=== PATIENT | female | born 1995 | race American Indian/Alaskan Native ===

== ENCOUNTER 2016-11-05 13:15 | Inpatient (IN) | payer OTHER ==
[2016-11-05] MEDS ORDERED: LACTATED RINGERS 2,000 ML ONE (14:31)
--- NOTE | 2016-11-05 15:11 | History and Physical Report ---
History of Present Illness Date of examination: 11/05/16 Chief complaint: Painful contractions x 24 hrs History of present illness: 21-year-old at 38+5 wks presents in active labor, she is a [facility] patient. Essential history is patient with care in [place] and recently moved to [place] in September of this year. Per review of her records from [place], she had elevated 1 hour GTT but normal 3 hour testing. I have her records from [place], but none from [facility]. Her records from [place] show lab results but none for HIV, hepatitis or syphilis. There is a a written report of negative study but no lab report. She claims to be GBS pos but I have no written report from [place]. He is currently 4-5 cm per RN exam with regular contractions. Past History Past Medical History: no pertinent history Past Surgical History: no surgical history [employer]IAN History: chlamydia. denies: gonorrhea, hepatitis B, hepatitis C, herpes, HIV, syphilis, trichomonas Social history: single, full code. denies: smoking, alcohol abuse, prescription drug abuse, IV drug use - Obstetrical History Expected Date of Delivery: 11/13/16 Actual Gestation: 38 Week(s) 6 Day(s) : 2 Para: 1 Medications and Allergies Allergies Allergy/AdvReac Type Severity Reaction Status Date / Time No Known Allergies Allergy Verified 11/05/16 14:38 Review of Systems Constitutional: no fever, no chills, no sweats Cardiovascular: no chest pain, no orthopnea, no syncope, no lightheadedness, no shortness of breath, no dyspnea on exertion, no paroxysmal nocturnal dyspnea, no high blood pressure Respiratory: no hemoptysis, no shortness of breath, no dyspnea on exertion Gastrointestinal: abdominal pain (painful regular contractions), no nausea, no vomiting, no diarrhea, no dyspepsia/bloating Genitourinary: no vaginal bleeding, no vaginal discharge, no leakage of fluid - Physical Exam Abdomen: Positive: normal appearance, soft. Negative: distention, tenderness, guarding, rigidity Genitourinary (Female): Positive: normal external genitalia Uterus: Positive: enlarged (EFW ~ 3400). Negative: tender Extremities: Positive: normal - Obstetrical FHR: category 1 Cervical Dilatation: 4.5 (Per RN exam) Results All other labs normal. Assessment and Plan A: 21-year-old at 38+5 weeks in active labor -Cat 1 tracing P: -Admit -Obtain routine labs -Will need labs as well (no lab results in chart) -UDS -Epidural when necessary -Expectant management -Anticipate normal vaginal delivery - Patient Problems (1) 38 weeks gestation of Current Visit: Yes Status: Acute (2) Active labor at term Current Visit: Yes Status: Acute (3) with care elsewhere in third trimester Current Visit: Yes Status: Acute
[2016-11-05] MEDS ORDERED: XYLOCAINE 2% INFILTRATI ONE (15:16)
[2016-11-05] MEDS ORDERED: BRETHINE SUB-Q PRN (15:16)
[2016-11-05] MEDS ORDERED: ePHEDrine SULFATE IV PRN (15:16)
[2016-11-05] MEDS ORDERED: BRETHINE IVP PRN (15:16)
[2016-11-05] MEDS ORDERED: POLYCILLIN/NS 2 GM/100 ML 2 GM/100 ML BAG IV ONE (15:16)
[2016-11-05] MEDS ORDERED: ZOFRAN IV PRN (15:16)
[2016-11-05] MEDS ORDERED: MINERAL OIL PO PRN (15:16)
[2016-11-05] MEDS ORDERED: PITOCin/NS 20 UNIT/1000ML DRIP 20 UNITS/1,000 ML BAG IV SCH (16:00)
[2016-11-05] MEDS ORDERED: LACTATED RINGERS 1,000 ML IV SCH (16:00)
[2016-11-05] MEDS ORDERED: PITOCin/NS 30 UNIT/500ML 30 UNITS/500 ML BAG IV SCH ×2 (16:00)
[2016-11-05 16:35] LABS: Hematocrit 42.6 % (30.3-42.9); Mean Corpuscular HGB Conc 33 % (30-34); Mean Corpuscular Hemoglobin 28 pg (28-32); Mean Corpuscular Volume 86 fl (79-97); Platelet Count 257 K/mm3 (140-440); Red Blood Count 4.97 M/mm3 (3.65-5.03); Red Cell Distribution Width 13.8 % (13.2-15.2); White Blood Count 19.8 K/mm3 (4.5-11.0)
[2016-11-05 17:05] LABS: HIV-1 Antigen p24 Non React (Non React); HIVR-1/2 Ab Non React (Non React)
[2016-11-05 18:20] LABS: Alanine Aminotransferase 15 units/L (7-56); Lactate Dehydrogenase 251 units/L (91-180)
[2016-11-05] MEDS ORDERED: MAGNESIUM SULFATE 4GM/100ML 4 GM/100 ML BAG IV ONE (18:30)
[2016-11-05] MEDS ORDERED: NORMODYNE IV PRN (18:33)
[2016-11-05] MEDS ORDERED: APRESOLINE IV PRN (18:34)
--- NOTE | 2016-11-05 18:40 | Event Note ---
Date: 11/05/16 Patient seen and examined. She has elevated blood pressures in the severe range 140 to 190s over 80s to 90s, is asymptomatic for pre-at this time. She is currently 7-8 cm and -1 station. Continuing expectant management of labor with no epidural. Plan at this point is to start magnesium per protocol. Start antihypertensives if blood pressure persistently in the severe range. Await results of urinalysis and hepatic panel.
[2016-11-05] MEDS: MAGNESIUM SULFATE 40GM/1000ML 40 GM/1,000 ML BAG IV NR (18:53)
[2016-11-05 19:06] LABS: Alanine Aminotransferase 16 units/L (7-56); Albumin 3.3 g/dL (3.9-5); Albumin/Globulin Ratio 0.8 %; Alkaline Phosphatase 93 units/L (35-129); Anion Gap 20 mmol/L; BUN/Creatinine Ratio 13.33; Blood Urea Nitrogen 8 mg/dL (7-17); Calcium 9.7 mg/dL (8.4-10.2); Carbon Dioxide 21 mmol/L (22-30); Chloride 98.6 mmol/L (98-107); Glucose 71 mg/dL (65-100); Potassium 4.6 mmol/L (3.6-5.0); Sodium 135 mmol/L (137-145); Total Protein 7.2 g/dL (6.3-8.2)
--- NOTE | 2016-11-05 19:13 | Progress Note ---
Assessment and Plan A: 21-year-old at 38+5 weeks in active labor -Cat 1 tracing P: -AROMed w/ meconium fluid -Magnesium started per protocol -Continue expectant management - Patient Problems (1) 38 weeks gestation of Current Visit: Yes Status: Acute (2) Active labor at term Current Visit: Yes Status: Acute (3) with care elsewhere in third trimester Current Visit: Yes Status: Acute Subjective - Subjective Date of service: 11/05/16 Interval history: Patient AROM, with thick pea soup meconium noted. She is 7-8 cm -1 station Patient reports: new complaints, movement normal, contractions, no vaginal bleeding Objective - Vital Signs Vital Signs: Vital Signs - 12hr 11/05/16 11/05/16 11/05/16 15:00 15:39 15:48 Temperature 98.7 F Pulse Rate 59 L 58 L Respiratory 20 Rate Blood Pressure 153/87 197/92 O2 Sat by Pulse Oximetry 11/05/16 11/05/16 11/05/16 16:00 16:03 16:08 Temperature Pulse Rate 59 L 62 59 L Respiratory Rate Blood Pressure 150/79 O2 Sat by Pulse 100 99 Oximetry 11/05/16 11/05/16 11/05/16 16:13 16:18 16:23 Temperature Pulse Rate 59 L 64 68 Respiratory Rate Blood Pressure 171/81 O2 Sat by Pulse 98 97 98 Oximetry 11/05/16 11/05/16 11/05/16 16:28 16:33 16:49 Temperature Pulse Rate 62 61 60 Respiratory Rate Blood Pressure 163/90 O2 Sat by Pulse 98 98 Oximetry 11/05/16 11/05/16 11/05/16 17:18 17:49 18:27 Temperature Pulse Rate 68 56 L 66 Respiratory Rate Blood Pressure 155/89 158/83 145/85 O2 Sat by Pulse Oximetry 11/05/16 11/05/16 18:49 19:01 Temperature Pulse Rate 64 71 Respiratory Rate Blood Pressure 184/99 157/83 O2 Sat by Pulse Oximetry - Exam FHR: category 1 Cervical Dilatation: 7.5 station: -1 - Labs Labs: Abnormal Labs 11/05/16 11/05/16 11/05/16 15:30 17:53 17:53 WBC 19.8 H Sodium 135 L Carbon Dioxide 21 L Creatinine 0.5 L 0.6 L Lactate Dehydrogenase 251 H Albumin 3.3 L Laboratory Results - last 24 hr 11/05/16 11/05/16 11/05/16 15:30 15:30 15:30 WBC 19.8 H RBC 4.97 Hgb 14.0 Hct 42.6 MCV 86 MCH 28 MCHC 33 RDW 13.8 Plt Count 257 Sodium Potassium Chloride Carbon Dioxide Anion Gap BUN Creatinine Estimated GFR BUN/Creatinine Ratio Glucose Uric Acid Calcium Total Bilirubin AST ALT Alkaline Phosphatase Lactate Dehydrogenase Total Protein Albumin Albumin/Globulin Ratio Hepatitis C Antibody Non-reactive HIV 1&2 Antibody Rapid HIV P24 Antigen Rubella IgG Antibody Immune Blood Type B POSITIVE Antibody Screen TNR DILLON Antibody Screen Negative 11/05/16 11/05/16 11/05/16 15:30 17:53 17:53 WBC RBC Hgb Hct MCV MCH MCHC RDW Plt Count Sodium 135 L Potassium 4.6 Chloride 98.6 Carbon Dioxide 21 L Anion Gap 20 BUN 8 Creatinine 0.5 L 0.6 L Estimated GFR > 60 > 60 BUN/Creatinine Ratio 13.33 Glucose 71 Uric Acid 6.0 Calcium 9.7 Total Bilirubin 0.30 AST 20 ALT 15 16 Alkaline Phosphatase 93 Lactate Dehydrogenase 251 H Total Protein 7.2 Albumin 3.3 L Albumin/Globulin Ratio 0.8 Hepatitis C Antibody HIV 1&2 Antibody Rapid Non react HIV P24 Antigen Non react Rubella IgG Antibody Blood Type Antibody Screen DILLON Antibody Screen
[2016-11-05] MEDS: POLYCILLIN/NS 1 GM/50 ML 1 GM/50 ML BAG IV SCH ×2 (19:20→23:42)
[2016-11-05 19:31] LABS: Urine Drugs of Abuse Note Disclamer
[2016-11-05 19:45] LABS: Bilirubin,Urine NEG (Negative); Blood,Urine LG (Negative); Ketones,Urine TR mg/dL (Negative); Leukocyte Esterase,Urine LG (Negative); Nitrite,Urine NEG (Negative); Urobilinogen,Urine < 2.0 mg/dL (<2.0)
[2016-11-05] MEDS: SUBLIMAZE IV PRN ×2 (20:28→22:28)
--- NOTE | 2016-11-05 22:13 | Progress Note ---
Assessment and Plan A: 21-year-old at 38+5 weeks in active labor -Patient now has Pre eclampsia w/ severe features (BP now mostly in severe range) -Cat 1 tracing P: -IV labetalol now per protocol -Oral labetalol 200 mg by mouth now -Continue expectant management for now -Start Pitocin in ~ 1 hour if no cervical change - Patient Problems (1) 38 weeks gestation of Current Visit: Yes Status: Acute (2) Active labor at term Current Visit: Yes Status: Acute (3) with care elsewhere in third trimester Current Visit: Yes Status: Acute Subjective - Subjective Date of service: 11/05/16 Interval history: Sincerely and examined, 9.5 and 0 station. BP in the severe range at this time , review of chart shows elevated blood pressures. Urinalysis shows significant proteinuria Patient reports: new complaints, movement normal, contractions, no vaginal bleeding Objective - Vital Signs Vital Signs: Vital Signs - 12hr 11/05/16 11/05/16 11/05/16 15:00 15:39 15:48 Temperature 98.7 F Pulse Rate 59 L 58 L Respiratory 20 Rate Blood Pressure 153/87 197/92 O2 Sat by Pulse Oximetry 11/05/16 11/05/16 11/05/16 16:00 16:03 16:08 Temperature Pulse Rate 59 L 62 59 L Respiratory Rate Blood Pressure 150/79 O2 Sat by Pulse 100 99 Oximetry 11/05/16 11/05/16 11/05/16 16:13 16:18 16:23 Temperature Pulse Rate 59 L 64 68 Respiratory Rate Blood Pressure 171/81 O2 Sat by Pulse 98 97 98 Oximetry 11/05/16 11/05/16 11/05/16 16:28 16:33 16:49 Temperature Pulse Rate 62 61 60 Respiratory Rate Blood Pressure 163/90 O2 Sat by Pulse 98 98 Oximetry 11/05/16 11/05/16 11/05/16 17:18 17:49 18:27 Temperature Pulse Rate 68 56 L 66 Respiratory Rate Blood Pressure 155/89 158/83 145/85 O2 Sat by Pulse Oximetry 11/05/16 11/05/16 11/05/16 18:49 19:01 19:30 Temperature 97.7 F Pulse Rate 64 71 Respiratory 18 Rate Blood Pressure 184/99 157/83 O2 Sat by Pulse Oximetry 11/05/16 11/05/16 11/05/16 19:47 20:18 20:51 Temperature Pulse Rate 67 65 92 H Respiratory Rate Blood Pressure 141/81 151/94 150/97 O2 Sat by Pulse Oximetry 11/05/16 11/05/16 11/05/16 21:23 21:29 22:07 Temperature Pulse Rate 108 H 91 H 94 H Respiratory Rate Blood Pressure 196/109 166/74 166/88 O2 Sat by Pulse Oximetry - Exam FHR: category 1 Cervical Dilatation: 9.5 station: 0 - Labs Labs: Abnormal Labs 11/05/16 11/05/16 11/05/16 15:30 17:53 17:53 WBC 19.8 H Sodium 135 L Carbon Dioxide 21 L Creatinine 0.5 L 0.6 L Lactate Dehydrogenase 251 H Albumin 3.3 L Urine WBC (Auto) 11/05/16 18:50 WBC Sodium Carbon Dioxide Creatinine Lactate Dehydrogenase Albumin Urine WBC (Auto) 28.0 H Laboratory Results - last 24 hr 11/05/16 11/05/16 11/05/16 15:30 15:30 15:30 WBC 19.8 H RBC 4.97 Hgb 14.0 Hct 42.6 MCV 86 MCH 28 MCHC 33 RDW 13.8 Plt Count 257 Sodium Potassium Chloride Carbon Dioxide Anion Gap BUN Creatinine Estimated GFR BUN/Creatinine Ratio Glucose Uric Acid Calcium Total Bilirubin AST ALT Alkaline Phosphatase Lactate Dehydrogenase Total Protein Albumin Albumin/Globulin Ratio Urine Color Urine Turbidity Urine pH Ur Specific [place] Urine Protein Urine Glucose (UA) Urine Ketones Urine Blood Urine Nitrite Urine Bilirubin Urine Urobilinogen Ur Leukocyte Esterase Urine WBC (Auto) Urine RBC (Auto) U Epithel Cells (Auto) Urine Opiates Screen Urine Methadone Screen Ur Barbiturates Screen Ur Phencyclidine Scrn Ur Amphetamines Screen U Benzodiazepines Scrn Urine Cocaine Screen U Marijuana (THC) Screen Drugs of Abuse Note Hepatitis C Antibody Non-reactive HIV 1&2 Antibody Rapid HIV P24 Antigen Rubella IgG Antibody Immune Blood Type B POSITIVE Antibody Screen TNR DILLON Antibody Screen Negative 11/05/16 11/05/16 11/05/16 15:30 17:53 17:53 WBC RBC Hgb Hct MCV MCH MCHC RDW Plt Count Sodium 135 L Potassium 4.6 Chloride 98.6 Carbon Dioxide 21 L Anion Gap 20 BUN 8 Creatinine 0.5 L 0.6 L Estimated GFR > 60 > 60 BUN/Creatinine Ratio 13.33 Glucose 71 Uric Acid 6.0 Calcium 9.7 Total Bilirubin 0.30 AST 20 20 ALT 15 16 Alkaline Phosphatase 93 Lactate Dehydrogenase 251 H Total Protein 7.2 Albumin 3.3 L Albumin/Globulin Ratio 0.8 Urine Color Urine Turbidity Urine pH Ur Specific [place] Urine Protein Urine Glucose (UA) Urine Ketones Urine Blood Urine Nitrite Urine Bilirubin Urine Urobilinogen Ur Leukocyte Esterase Urine WBC (Auto) Urine RBC (Auto) U Epithel Cells (Auto) Urine Opiates Screen Urine Methadone Screen Ur Barbiturates Screen Ur Phencyclidine Scrn Ur Amphetamines Screen U Benzodiazepines Scrn Urine Cocaine Screen U Marijuana (THC) Screen Drugs of Abuse Note Hepatitis C Antibody HIV 1&2 Antibody Rapid Non react HIV P24 Antigen Non react Rubella IgG Antibody Blood Type Antibody Screen DILLON Antibody Screen 11/05/16 11/05/16 18:50 18:50 WBC RBC Hgb Hct MCV MCH MCHC RDW Plt Count Sodium Potassium Chloride Carbon Dioxide Anion Gap BUN Creatinine Estimated GFR BUN/Creatinine Ratio Glucose Uric Acid Calcium Total Bilirubin AST ALT Alkaline Phosphatase Lactate Dehydrogenase Total Protein Albumin Albumin/Globulin Ratio Urine Color Yellow Urine Turbidity Slightly-cloudy Urine pH 7.0 Ur Specific Sophia 1.009 Urine Protein 100 mg/dl Urine Glucose (UA) Neg Urine Ketones Tr Urine Blood Lg Urine Nitrite Neg Urine Bilirubin Neg Urine Urobilinogen < 2.0 Ur Leukocyte Esterase Lg Urine WBC (Auto) 28.0 H Urine RBC (Auto) 51.0 U Epithel Cells (Auto) 1.0 Urine Opiates Screen Presumptive negative Urine Methadone Screen Presumptive negative Ur Barbiturates Screen Presumptive negative Ur Phencyclidine Scrn Presumptive negative Ur Amphetamines Screen Presumptive negative U Benzodiazepines Scrn Presumptive negative Urine Cocaine Screen Presumptive negative U Marijuana (THC) Screen Presumptive negative Drugs of Abuse Note Disclamer Hepatitis C Antibody HIV 1&2 Antibody Rapid HIV P24 Antigen Rubella IgG Antibody Blood Type Antibody Screen DILLON Antibody Screen
[2016-11-05] MEDS: NORMODYNE PO SCH (22:28)
[2016-11-06] MEDS ORDERED: XYLOCAINE 2% INFILTRATI ONE (00:45)
--- NOTE | 2016-11-06 01:05 | Procedure Note ---
OB Delivery Note - Delivery Date of Delivery: 11/06/16 Surgeon: IVETT MOTA Estimated blood loss: 200cc - Vaginal Delivery presentation: vertex Delivery position: OA Intrapartum events: meconium, preeclampsia, prolonged 2nd stage>2.5hr Delivery induction: none Delivery augmentation: rupture of membranes, pitocin Delivery monitor: external FHT, external uterine Route of delivery: Delivery placenta: spontaneous Delivery cord: 3 umbilical vessels Episiotomy: none Delivery laceration: 2nd degree Delivery repair: vicryl Anesthesia: local - Infant A at 1 minute: 8 at 5 minutes: 9 Gender: Male (Del @ 12:43, weight is 5#10 or 2552 g)
[2016-11-06] MEDS ORDERED: ZOFRAN IV PRN (01:06)
[2016-11-06] MEDS ORDERED: MILK OF MAGNESIA PO PRN (01:06)
[2016-11-06] MEDS ORDERED: TYLENOL PO PRN (01:06)
[2016-11-06] MEDS ORDERED: LANSINOH TP PRN (01:06)
[2016-11-06] MEDS ORDERED: ANUCORT-HC PR PRN (01:06)
[2016-11-06] MEDS ORDERED: PHENERGAN PR PRN (01:06)
[2016-11-06] MEDS ORDERED: DERMOPLAST TP PRN (01:06)
[2016-11-06] MEDS ORDERED: BENADRYL PO PRN (01:06)
[2016-11-06] MEDS ORDERED: PHENERGAN PO PRN (01:06)
[2016-11-06] MEDS ORDERED: DULCOLAX PR PRN (01:06)
[2016-11-06] MEDS ORDERED: TUCKS PAD TP PRN (01:06)
[2016-11-06] MEDS ORDERED: NORCO 5/325 PO PRN (01:06)
[2016-11-06] MEDS ORDERED: PITOCin/NS 20 UNIT/1000ML DRIP 20 UNITS/1,000 ML BAG IV SCH (02:00)
[2016-11-06] MEDS ORDERED: SODIUM CHLORIDE FLUSH SYRINGE 10 ML IV PRN (02:00)
[2016-11-06] MEDS: MOTRIN PO SCH ×3 (02:12→17:51)
[2016-11-06] MEDS ORDERED: BOOSTRIX IM ONE (06:00)
[2016-11-06] MEDS ORDERED: LACTATED RINGERS 1,000 ML ONE (08:40)
[2016-11-06] MEDS: COLACE PO SCH ×2 (09:35→22:06)
[2016-11-06] MEDS: PRENATAL VITAMIN PO SCH (09:35)
[2016-11-06] MEDS: NORMODYNE PO SCH ×2 (09:35→22:05)
[2016-11-06] MEDS: FEOSOL PO SCH ×2 (09:35→22:06)
[2016-11-06 13:59] LABS: Hematocrit 35.3 % (30.3-42.9); Hemoglobin 11.7 gm/dl (10.1-14.3)
[2016-11-06] MEDS: MAGNESIUM SULFATE 40GM/1000ML 40 GM/1,000 ML BAG IV NR (15:47)
[2016-11-06] MEDS: SENOKOT S PO SCH (22:06)
[2016-11-06] MEDS ORDERED: LACTATED RINGERS 1,000 ML IV SCH (23:00)
[2016-11-07] MEDS: MOTRIN PO SCH ×4 (00:06→23:19)
[2016-11-07] MEDS ORDERED: BOOSTRIX IM ONE (06:00)
[2016-11-07] MEDS: NORMODYNE PO SCH ×2 (10:03→21:59)
[2016-11-07] MEDS: PRENATAL VITAMIN PO SCH (10:03)
[2016-11-07] MEDS: FEOSOL PO SCH ×2 (10:03→21:59)
[2016-11-07] MEDS: COLACE PO SCH ×2 (10:04→22:00)
--- NOTE | 2016-11-07 10:26 | Progress Note ---
Assessment and Plan - Patient Problems (1) (normal spontaneous vaginal delivery) Onset Date: 11/07/16 Current Visit: Yes Status: Resolved Plan to address problem: A: S/P - PPD #1 Doing well Preeclampsia - BP's improved on Labetolol 200mg BID P: May go home tomorrow if remains stable. (2) Pre-eclampsia affecting childbirth Onset Date: 11/07/16 Current Visit: Yes Status: Resolved Subjective - Subjective Date of service: 11/07/16 Principal diagnosis: s/p - PPD #1; Preeclampsia Interval history: Pt is feeling well without complaints. Bleeding improved. S/P magnesium sulfate x 24hrs and currently on Labetolol 200mg BID. She denies headaches or blurred vision. Patient reports: appetite normal, voiding normally, pain well controlled, flatus , ambulating normally : doing well, nursing well, bottle feeding Objective - Vital Signs Latest vital signs: Vital Signs Temp Pulse Pulse Resp BP BP 11/07/16 10:03 76 128/59 11/07/16 08:44 98.6 F 79 18 139/69 11/07/16 03:40 98.2 F 76 18 132/60 11/07/16 00:56 98.7 F 69 20 119/54 11/06/16 22:05 78 130/74 11/06/16 20:20 98.6 F 71 22 111/52 11/06/16 18:45 98.0 F 75 20 115/57 11/06/16 16:00 98.3 F 80 18 113/51 11/06/16 13:45 98.5 F 78 20 116/60 11/06/16 11:46 98.0 F 86 18 112/55 Intake and Output 11/06/16 11/07/16 11/07/16 22:59 06:59 14:59 Intake Total 1590 340 Output Total 600 700 Balance 990 -360 Intake: IV 150 Lactated Ringers 1,000 ml 150 As .ROUTE .[facility] Rx#:[id number] Oral 1200 Intake, Free Water 240 340 Output: Urine 600 700 Indwelling Catheter 600 500 Void 200 Other: Total, Intake Amount 480 Total, Output Amount 600 200 # Voids Indwelling Catheter 700 - Exam Breasts: Present: deferred Cardiovascular: Present: Regular rate Lungs: Present: Clear to auscultation Abdomen: Present: normal appearance, soft Uterus: Present: normal, firm, fundal height below umbilicus Extremities: Present: normal - Labs Labs: Abnormal lab results 11/06/16 11/06/16 Range/Units 13:17 18:30 Magnesium 5.60 H 5.70 H (1.7-2.3) mg/dL Laboratory Tests 11/05/16 11/05/16 11/05/16 15:30 15:30 15:30 WBC 19.8 H RBC 4.97 Hgb 14.0 Hct 42.6 MCV 86 MCH 28 MCHC 33 RDW 13.8 Plt Count 257 Sodium Potassium Chloride Carbon Dioxide Anion Gap BUN Creatinine Estimated GFR BUN/Creatinine Ratio Glucose Uric Acid Calcium Magnesium Total Bilirubin AST ALT Alkaline Phosphatase Lactate Dehydrogenase Total Protein Albumin Albumin/Globulin Ratio Urine Color Urine Turbidity Urine pH Ur Specific [place] Urine Protein Urine Glucose (UA) Urine Ketones Urine Blood Urine Nitrite Urine Bilirubin Urine Urobilinogen Ur Leukocyte Esterase Urine WBC (Auto) Urine RBC (Auto) U Epithel Cells (Auto) Urine Opiates Screen Urine Methadone Screen Ur Barbiturates Screen Ur Phencyclidine Scrn Ur Amphetamines Screen U Benzodiazepines Scrn Urine Cocaine Screen U Marijuana (THC) Screen Drugs of Abuse Note RPR Hepatitis C Antibody Non-reactive HIV 1&2 Antibody Rapid HIV P24 Antigen Rubella IgG Antibody Immune Blood Type B POSITIVE Antibody Screen TNR DILLON Antibody Screen Negative 11/05/16 11/05/16 11/05/16 15:30 15:30 17:53 WBC RBC Hgb Hct MCV MCH MCHC RDW Plt Count Sodium Potassium Chloride Carbon Dioxide Anion Gap BUN Creatinine 0.5 L Estimated GFR > 60 BUN/Creatinine Ratio Glucose Uric Acid 6.0 Calcium Magnesium Total Bilirubin AST 20 ALT 15 Alkaline Phosphatase Lactate Dehydrogenase 251 H Total Protein Albumin Albumin/Globulin Ratio Urine Color Urine Turbidity Urine pH Ur Specific [place] Urine Protein Urine Glucose (UA) Urine Ketones Urine Blood Urine Nitrite Urine Bilirubin Urine Urobilinogen Ur Leukocyte Esterase Urine WBC (Auto) Urine RBC (Auto) U Epithel Cells (Auto) Urine Opiates Screen Urine Methadone Screen Ur Barbiturates Screen Ur Phencyclidine Scrn Ur Amphetamines Screen U Benzodiazepines Scrn Urine Cocaine Screen U Marijuana (THC) Screen Drugs of Abuse Note RPR Nonreactive Hepatitis C Antibody HIV 1&2 Antibody Rapid Non react HIV P24 Antigen Non react Rubella IgG Antibody Blood Type Antibody Screen DILLON Antibody Screen 11/05/16 11/05/16 11/05/16 17:53 18:50 18:50 WBC RBC Hgb Hct MCV MCH MCHC RDW Plt Count Sodium 135 L Potassium 4.6 Chloride 98.6 Carbon Dioxide 21 L Anion Gap 20 BUN 8 Creatinine 0.6 L Estimated GFR > 60 BUN/Creatinine Ratio 13.33 Glucose 71 Uric Acid Calcium 9.7 Magnesium Total Bilirubin 0.30 AST 20 ALT 16 Alkaline Phosphatase 93 Lactate Dehydrogenase Total Protein 7.2 Albumin 3.3 L Albumin/Globulin Ratio 0.8 Urine Color Yellow Urine Turbidity Slightly-cloudy Urine pH 7.0 Ur Specific [place] 1.009 Urine Protein 100 mg/dl Urine Glucose (UA) Neg Urine Ketones Tr Urine Blood Lg Urine Nitrite Neg Urine Bilirubin Neg Urine Urobilinogen < 2.0 Ur Leukocyte Esterase Lg Urine WBC (Auto) 28.0 H Urine RBC (Auto) 51.0 U Epithel Cells (Auto) 1.0 Urine Opiates Screen Presumptive negative Urine Methadone Screen Presumptive negative Ur Barbiturates Screen Presumptive negative Ur Phencyclidine Scrn Presumptive negative Ur Amphetamines Screen Presumptive negative U Benzodiazepines Scrn Presumptive negative Urine Cocaine Screen Presumptive negative U Marijuana (THC) Screen Presumptive negative Drugs of Abuse Note Disclamer RPR Hepatitis C Antibody HIV 1&2 Antibody Rapid HIV P24 Antigen Rubella IgG Antibody Blood Type Antibody Screen DILLON Antibody Screen 11/06/16 11/06/16 11/06/16 02:28 06:00 13:17 WBC RBC Hgb Hct MCV MCH MCHC RDW Plt Count Sodium Potassium Chloride Carbon Dioxide Anion Gap BUN Creatinine Estimated GFR BUN/Creatinine Ratio Glucose Uric Acid Calcium Magnesium 4.90 H 5.60 H 5.60 H Total Bilirubin AST ALT Alkaline Phosphatase Lactate Dehydrogenase Total Protein Albumin Albumin/Globulin Ratio Urine Color Urine Turbidity Urine pH Ur Specific [place] Urine Protein Urine Glucose (UA) Urine Ketones Urine Blood Urine Nitrite Urine Bilirubin Urine Urobilinogen Ur Leukocyte Esterase Urine WBC (Auto) Urine RBC (Auto) U Epithel Cells (Auto) Urine Opiates Screen Urine Methadone Screen Ur Barbiturates Screen Ur Phencyclidine Scrn Ur Amphetamines Screen U Benzodiazepines Scrn Urine Cocaine Screen U Marijuana (THC) Screen Drugs of Abuse Note RPR Hepatitis C Antibody HIV 1&2 Antibody Rapid HIV P24 Antigen Rubella IgG Antibody Blood Type Antibody Screen DILLON Antibody Screen 11/06/16 11/06/16 13:17 18:30 WBC RBC Hgb 11.7 Hct 35.3 D MCV MCH MCHC RDW Plt Count Sodium Potassium Chloride Carbon Dioxide Anion Gap BUN Creatinine Estimated GFR BUN/Creatinine Ratio Glucose Uric Acid Calcium Magnesium 5.70 H Total Bilirubin AST ALT Alkaline Phosphatase Lactate Dehydrogenase Total Protein Albumin Albumin/Globulin Ratio Urine Color Urine Turbidity Urine pH Ur Specific [place] Urine Protein Urine Glucose (UA) Urine Ketones Urine Blood Urine Nitrite Urine Bilirubin Urine Urobilinogen Ur Leukocyte Esterase Urine WBC (Auto) Urine RBC (Auto) U Epithel Cells (Auto) Urine Opiates Screen Urine Methadone Screen Ur Barbiturates Screen Ur Phencyclidine Scrn Ur Amphetamines Screen U Benzodiazepines Scrn Urine Cocaine Screen U Marijuana (THC) Screen Drugs of Abuse Note RPR Hepatitis C Antibody HIV 1&2 Antibody Rapid HIV P24 Antigen Rubella IgG Antibody Blood Type Antibody Screen DILLON Antibody Screen
--- NOTE | 2016-11-07 10:32 | Discharge Summary ---
Providers - Providers Date of Admission: 11/05/16 16:25 Date of discharge: 11/08/16 Attending physician: IVETT MOTA Primary care physician: IVETT MOTA Hospitalization Reason for admission: active labor, IUP at term Delivery: Episiotomy: none Laceration: 2nd degree Incision: normal Other procedures: none complications: none Discharge diagnosis: IUP at term delivered, other (Preeclampsia) baby: male Hospital course: Pt is a 21-year-old BF at 38+5 weeks who presented in active labor and developed Pre eclampsia w/ severe features requiring Magnesium sulfate and Labetolol for BP control. She had an uneventful delivery and continued on Magnesium sulfate for 24hrs along with Labetolol 200mg BID. Her BP' s ranged 119-139/54-74, and is currently 128/59. She will therefore be discharged to home tomorrow if she remains stable on Labetolol 200mg BID. Condition at discharge: Good Disposition: DISCHARGED TO HOME OR SELFCARE - Discharge Diagnoses (1) (normal spontaneous vaginal delivery) Status: Resolved (2) Pre-eclampsia affecting childbirth Status: Resolved Plan - Discharge Medications Prescriptions: Acetaminophen [Acetaminophen TAB] 325 mg PO Q6HR PRN #30 tablet PRN Reason: Pain HYDROcodone/APAP 5-325 [Morris 5/325] 1 each PO Q6HR PRN #10 tablet PRN Reason: Pain Labetalol [Normodyne TAB] 200 mg PO BID #60 tablet Multivitamin with Iron [Multivitamins with Iron] 1 each PO DAILY #30 tablet - Provider Discharge Summary Activity: routine, no sex for 6 weeks, no heavy lifting 4 weeks, no strenuous exercise Diet: routine Instructions: routine Additional instructions: [] Smoking cessation referral if applicable(refer to patient education folder for contact #) [] Refer to [facility] Booklet Call your doctor immediately for: * Fever > 100.5 * Heavy vaginal bleeding ( >1 pad per hour) * Severe persistent headache * Shortness of breath * Reddened, hot, painful area to leg or breast * Drainage or odor from incision. * Keep incision clean and dry at all times and follow doctor's instructions regarding bathing/showering Follow up in the office in 1 week for BP check - Follow up plan Follow up: IVETT MOTA MD [Primary Care Provider] - 7 Days
[2016-11-07] MEDS: SENOKOT S PO SCH (21:59)
[2016-11-08] MEDS: SENOKOT S PO SCH (10:47)
[2016-11-08] MEDS: NORMODYNE PO SCH (10:48)
[2016-11-08] MEDS: FEOSOL PO SCH (10:48)
[2016-11-08] MEDS: PRENATAL VITAMIN PO SCH (10:48)
[2016-11-08] MEDS: MOTRIN PO SCH (10:48)
[2016-11-08] MEDS: COLACE PO SCH (10:48)
[2016-11-08 13:31] VITALS: BP 140/88
== END 2016-11-08 13:50 | disposition home or self-care (01) | DRG 775 ==
LOC: TRG 13:15 → LD 16:25 → OB 11-06 05:17
PROVIDERS: ADMIT Obstetrics & Gynecology Gynecology; ATTEND Obstetrics & Gynecology Gynecology
PROC: 10907ZC Drainage of Amniotic Fluid, Therapeutic from Products of Conception, Via Natural or Artificial Opening (ICD-10-PCS; principal; 2016-11-06)
PROC: 0KQM0ZZ Repair Perineum Muscle, Open Approach (ICD-10-PCS; principal; 2016-11-06)
PROC: 10E0XZZ Delivery of Products of Conception, External Approach (ICD-10-PCS; principal; 2016-11-06)
DX: O14.14 Severe pre-eclampsia complicating childbirth (principal); O70.1 Second degree perineal laceration during delivery; Z37.0 Single live birth; Z3A.38 38 weeks gestation of pregnancy; O77.0 Labor and delivery complicated by meconium in amniotic fluid; O09.33 Supervision of pregnancy with insufficient antenatal care, third trimester
CPT/HCPCS: 36415; 80053; 80307; 81001; 82565; 83615; 83735; 84450; 84460; 84550; 85014; 85018; 85027; 86592; 86706; 86762; 86803; 86850; 86900; 86901; 87806; 90471; 90715; 99211; G0463; J0290; J2590; J3010; J3475; J7120